=== PATIENT | female | born 2005 | race Hispanic/Latino ===

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

== ENCOUNTER 2024-03-19 13:03 | Day surgery (SDC) | payer OTHER, BC ==
[~2024-03-19] VITALS: Ht 144.8 cm; Wt 44.9 kg
[~2024-03-19 13:03] MED LIST changes: +BIRTH CONTROL
--- OUTSIDE RECORDS SUMMARY | 2024-03-19 13:12 | XMS ---
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 - Patient eloped before treatment completed. - Patient with suicidal and/or homicidal ideations eloped. Details: Patient LWBS. CRITERIA MET - Group Notification - [facility] - 2 Visits in 30 Days CARE PROVIDERS There are no care providers on record at this time. Noreen has no Care Guidelines for this patient. E.D. VISIT COUNT (12 MO.) 4 [facility]. TOTAL 4 NOTE: Visits indicate total known visits. ED/UCC VISIT TRACKING (12 MO.) 03/19/2024 13:[address] [facility] TYPE: Emergency COMPLAINT: - 9 WEEKS VAGINAL BLEEDING 03/18/2024 22:[address] [facility] TYPE: Emergency COMPLAINT: - BLEEDING/9 WEEKS 12/09/2023 20:[address] [facility] [place] TYPE: Emergency COMPLAINT: - FLU SYMPTOMS 06/04/2023 21:[address] [facility] [place] TYPE: Emergency COMPLAINT: - R ANKLE PAIN/NO INJ DIAGNOSES: - Other enthesopathy of right foot and ankle - Pain in right ankle and joints of right foot INPATIENT VISIT TRACKING (12 MO.) No inpatient visits to display in this time frame [email or web address]
[2024-03-19] MEDS ORDERED: fentaNYL citrate 100 MCG/2 ML VIAL IV PRN (14:00)
[2024-03-19] MEDS ORDERED: ondansetron HCL 4 MG/2 ML VIAL IV ONE (14:00)
[2024-03-19 14:04] LABS: BASOPHILS 0.2 % (0-2); EOSINOPHILS 1.6 % (0-6); HEMOGLOBIN 11.9 g/dL (12.0-18.0); LYMPHOCYTES 20.4 % (24-44); MCH 29.2 (27-36); MCV 85.9 fl (81-99); MONOCYTES 5.9 % (0-12); NEUTROPHILS 71.9 % (39-80); PLATELET COUNT 200 K/uL (140-440); RBC 4.07 M/ul (4.3-5.7); RDW 13.2 (10.5-15.0)
[2024-03-19 14:43] LABS: ALBUMIN 3.9 g/dL (3.4-5.0); ALBUMIN/GLOBULIN RATIO 1.22 (1.1-2.4); ANION GAP 11.6 (7-21); BILIRUBIN, TOTAL 0.5 ng/dL (0.2-1.0); BUN/CREATININE RATIO 20.4 (6.0-28.6); CALCIUM 8.8 mg/dL (8.5-10.1); CREATININE, SERUM 0.49 mg/dL (0.55-1.02); POTASSIUM 3.6 mmol/L (3.5-5.1); PROTEIN, TOTAL 7.1 g/dL (6.4-8.2)
[2024-03-19] MEDS ORDERED: ONDANSETRON ODT8 MG PO (15:51)
[2024-03-19] MEDS ORDERED: HYDROmorphone HCL 1 MG/ML SYR IV PRN ×2 (16:15→17:30)
[2024-03-19] MEDS ORDERED: CEFAZOLIN SODIUM 2 GM/20 ML SYR IV ONE ×2 (17:15)
[2024-03-19] MEDS ORDERED: ACETAMINOPHEN 1,000 MG/100 ML VIAL ONE (17:17)
[2024-03-19] MEDS ORDERED: propofoL 200 MG/20 ML VIAL ONE (17:17)
[2024-03-19] MEDS ORDERED: MIDAZOLAM HCL 2 MG/2 ML VIAL ONE (17:17)
[2024-03-19] MEDS ORDERED: LIDOCAINE HCL 2% 5 ML SDV ONE (17:17)
[2024-03-19] MEDS ORDERED: fentaNYL citrate 100 MCG/2 ML VIAL ONE (17:17)
[2024-03-19] MEDS ORDERED: ondansetron HCL 4 MG/2 ML VIAL ONE (17:17)
[2024-03-19] MEDS ORDERED: DEXAMETHASONE SOD PHOS 4 MG/ML VIAL ONE (17:17)
[2024-03-19 17:28] LABS: ABO A; RH POSITIVE
[2024-03-19 17:29] LABS: ANTIBODY SCREEN NEGATIVE
[2024-03-19] MEDS ORDERED: ondansetron HCL 4 MG/2 ML VIAL IV PRN (17:30)
[2024-03-19] MEDS ORDERED: droPERidol 5 MG/2 ML VIAL IV PRN (17:30)
[2024-03-19] MEDS ORDERED: IBLOOD GLUCOSE TEST STRIP 1 EA TEST VI PRN (17:30)
[2024-03-19] MEDS ORDERED: PROCHLORPERAZINE EDISYLATE 10 MG/2 ML VIAL IV PRN (17:30)
[2024-03-19] MEDS ORDERED: NALOXONE HCL 0.4 MG SYR IV PRN (17:30)
[2024-03-19] MEDS ORDERED: fentaNYL citrate 50 MCG/ML SDV IV PRN (17:30)
[2024-03-19] MEDS ORDERED: CEFAZOLIN SOD 1,000 MG/10 ML VIAL ONE (17:36)
[2024-03-19] MEDS ORDERED: KETOROLAC TROMETHAMINE 30 MG/ML VIAL ONE (17:50)
--- NOTE | 2024-03-19 18:04 | NUR ---
03/19/24 1802 Letitia,Sarah 1757 PT ARRIVED TO PACU ON 6L VIA MASK, RESP EVEN AND UNLABORED WITH ORAL AIRWAY IN PLACE. PT NONAROUSABLE TO TACTILE STIMULI.
[2024-03-19 18:36] VITALS: BP 103/69
[2024-03-19] MEDS ORDERED: ONDANSETRON 4 MG TAB ODT ONE (18:47)
[2024-03-19] MEDS ORDERED: ONDANSETRON 4 MG TAB ODT SL ONE (19:00)
--- NOTE | 2024-03-23 14:55 | PATH ---
[facility] [address] [place], [place] [address] Signed SPECIMEN(S): A PRODUCTS OF CONCEPTION SPECIMEN SOURCE: A. PRODUCTS OF CONCEPTION CLINICAL HISTORY: Missed AB. FINAL PATHOLOGIC DIAGNOSIS: Products of conception: - Immature chorionic villi consistent with clinical missed . JVR:clv MICROSCOPIC EXAMINATION: Histologic sections of all submitted blocks are examined by light microscopy. These findings, together with the gross examination, support the pathologic diagnosis. GROSS DESCRIPTION: The specimen, labeled and designated "Kelsi, J, " and designated on the requisition "products of conception," is received in formalin and consists of 6.6 x 5.7 x 1.3 cm aggregate of pink-red, spongy soft tissue fragments with an intact clear watery fluid-filled sac-like structure that is 2.1 cm in greatest dimension. No parts are grossly identified. Electronic Parts Designer sections are submitted FB (under the direct supervision of a pathologist) The Gross Description was prepared using a voice recognition system. The report was reviewed for accuracy; however, sound-alike word errors, addition and/or deletions may occur. If there is any question about this report, please contact Client Services. ADDITIONAL NOTES: Immunohistochemical and/or in situ hybridization studies if performed in this case included appropriate positive controls that reacted as expected. This test was developed and its performance characteristics determined by [employer]. It has not been cleared or approved by the U.S. Food and Drug Administration. The FDA has determined that such clearance or approval is not necessary. This test is used for clinical purposes. It should not be regarded as investigational or for research. [employer] is certified under the Clinical Laboratory Improvement PATIENT NAME: ASHLEY ELLSWORTH PATHOLOGY DATE OF : 03 REPORT #: [id number] PHYSICIAN: ADELAIDA DONOVAN PCP: MELODY MIDDLETON MD REPORT IS CONFIDENTIAL AND NOT TO BE RELEASED WITHOUT AUTHORIZATION [facility] [address] [place], [place] [address] Signed Amendments of 1988 (CLIA) as qualified to perform high complexity clinical laboratory testing. PERFORMING LABORATORY: Technical component was performed by [employer] [facility], [address] [place] [address] (CLIA# [id number]). Professional interpretation was performed by [facility] - [facility], [address] [place] [id number] (CLIA#: [id number]). Diagnostician: Anjum Dorantes MD Pathologist Electronically Signed 03/23/2024 Copies: ~ PATIENT NAME: ASHLEY ELLSWORTH PATHOLOGY DATE OF : 03 REPORT #: [id number] PHYSICIAN: ADELAIDA DONOVAN PCP: MELODY MIDDLETON MD REPORT IS CONFIDENTIAL AND NOT TO BE RELEASED WITHOUT AUTHORIZATION
--- NOTE | 2024-03-29 21:20 | OR ---
[facility] [address], [place] [address] Signed DATE OF OPERATION: 03/19/2024 SURGEON: Jenn Sanon MD PREOPERATIVE DIAGNOSIS: Incomplete . POSTOPERATIVE DIAGNOSIS: Incomplete . PROCEDURE: Suction dilation and curettage. ANESTHESIA: MAC. ESTIMATED BLOOD LOSS: 50 mL. DRAINS: None. INDICATIONS AND FINDINGS: The patient is a 18-year-old female, 1, approximately 9 weeks by LMP, who has had abnormal ultrasounds consistent with missed AB as well as increasing bleeding and pain. She presented to the emergency room twice within 24 hours. At this time, it did appear that she was having significantly more bleeding as well as increased pain. At the time of surgery, her uterus was approximately 10-week size. The cervix was wide open. There was a large amount of tissue within the uterus. DESCRIPTION OF PROCEDURE: The patient was prepped and draped in the dorsal lithotomy position. An open-sided speculum was placed. The anterior lip of the cervix was visualized and grasped with single-tooth tenaculum. There was tissue presenting at the os, which was teased out using ring forceps. The cervix accepted a #11 dilator. A #11 curved suction curette was introduced and suction was applied with removal of more tissue. This was followed by sharp curettage with a small amount of tissue found. The suction curettage was repeated until the cavity felt smooth and contracted. The tenaculum was removed. There was initially some bleeding from the left hand tenaculum site, which responded to pressure with ring forceps. She was having minimal bleeding at this time and the Electronically Signed By: JENN SANON MD 03/29/24 0395 PATIENT NAME: ASHLEY ELLSWORTH OPERATIVE REPORT DATE OF : 03 REPORT #: [id number] PHYSICIAN: JENN SANON MD PCP: MELODY MIDDLETON MD REPORT IS CONFIDENTIAL AND NOT TO BE RELEASED WITHOUT AUTHORIZATION [address] [place], [place] [address] Signed procedure was terminated. All sponge and needle counts were correct. She was taken to the recovery room in good condition. Jenn Sanon MD PJW/MODL /[id number] Copies: ~ Electronically Signed By: JENN SANON MD 03/29/24 2120 PATIENT NAME: ASHLEY ELLSWORTH OPERATIVE REPORT DATE OF : 03 REPORT #: [id number] PHYSICIAN: JENN SANON MD PCP: MELODY MIDDLETON MD REPORT IS CONFIDENTIAL AND NOT TO BE RELEASED WITHOUT AUTHORIZATION
--- NOTE | 2024-04-06 08:16 | CONS ---
[facility] [address] [place], [place] [address] Signed DATE OF CONSULTATION: 03/19/2024 REQUESTING PHYSICIAN: Bernie Soni MD HISTORY OF PRESENT ILLNESS: The patient is a 18-year-old female, 1, para 0, approximately 9 weeks by LMP, who has been having abnormal bleeding and pain for the past several days. She has had several ultrasounds, which did not reveal any poles. She did appear to have twin gestational sac, one was quite a bit smaller than the other. Over the last several days, she has been in the emergency room twice. She has been having some increasing bleeding and increasing pain. Today, the pain was quite severe, as was the bleeding. Ultrasound showed further irregularity of the sacs, which were also much smaller with some perigestational hemorrhage. PAST SURGICAL HISTORY: Appendectomy. HOSPITALIZATIONS: None. ILLNESSES: Negative for hypertension, diabetes, murmur, asthma, liver, kidney problems, migraines. ALLERGIES: No known allergies. MEDICATIONS: vitamins. REVIEW OF SYSTEMS: Otherwise negative. PHYSICAL EXAMINATION: VITAL SIGNS: Blood pressure is 103/60, pulse 75, she is afebrile. GENERAL: Well-developed, well-nourished female, in mild distress. She is pleasant and cooperative. LUNGS: Clear. HEART: Regular rate and rhythm without murmur. ABDOMEN: Soft. She has active bowel sounds. She is tender in the suprapubic area. PELVIC: Deferred. LABORATORY DATA: Electronically Signed By: JENN SANON MD 04/06/24 0816 PATIENT NAME: ASHLEY ELLSWORTH CONSULTATION DATE OF : 03 REPORT #: [id number] PHYSICIAN: JENN SANON MD PCP: MELODY MIDDLETON MD REPORT IS CONFIDENTIAL AND NOT TO BE RELEASED WITHOUT AUTHORIZATION [facility] [address] [place], [place] [address] Signed H and H, 11.9 and 35, white count 9.9, platelets 200. She is A positive. IMPRESSION: A 18-year-old female, 1 with an incomplete AB. Given her significant pain and ongoing bleeding, I feel proceeding with suction dilation and curettage is needed. The risks of surgery including, but not limited to, infection, bleeding, were all discussed. She had no questions and requested no further information. PLAN: Suction D and C now. Jenn Sanon MD PJW/MODL /[id number] Copies: ~ Electronically Signed By: JENN SANON MD 04/06/24 0816 PATIENT NAME: ASHLEY ELLSWORTH CONSULTATION DATE OF : 03 REPORT #: [id number] PHYSICIAN: JENN SANON MD PCP: MELODY MIDDLETON MD REPORT IS CONFIDENTIAL AND NOT TO BE RELEASED WITHOUT AUTHORIZATION
== END 2024-03-19 19:00 | disposition home or self-care (01) ==
LOC: ED 13:03 → MS 18:12 → DS 18:12 → MS 18:13 → DS 19:00
PROVIDERS: Emergency Medicine; ATTEND Obstetrics & Gynecology
PROC: 10D17ZZ Extraction of Products of Conception, Retained, Via Natural or Artificial Opening (ICD-10-PCS; principal; 2024-03-19 17:09)
DX: O03.1 Delayed or excessive hemorrhage following incomplete spontaneous abortion (principal)
CPT/HCPCS: 00940; 36415; 76801; 76817; 80053; 84702; 85025; 86850; 86900; 86901; 96374; 96375; 96376; 99284-25; A9270; J0131; J0690; J1100; J1170; J1885; J2001; J2250; J2405; J2704; J3010